=== PATIENT | male | born 1960 | race Caucasian/White ===

== ENCOUNTER 2018-04-10 09:16 | Observation (INO) | payer OTHER ==
[~2018-04-10] VITALS: Ht 182.9 cm; Wt 113.4 kg
[2018-04-10] VITALS (18 sets, daily range): BP systolic 110–150; BP diastolic 60–86
--- NOTE | ~2018-04-10 | D ---
[address] [address] DISCHARGE SUMMARY Name: SELWYN CASTANEDA TONE Room: [address] Yaneli MManoloRManolo#: [id number] Admission: 04/10/18 Attend Phys: Solitario Post MD, Discharge: Date of : 56 Report #: [id number] THIS REPORT FOR: //name// CC: HEENA physician/PCP Solitario Post DATE OF SERVICE: 04/11/2018 FINAL DISCHARGE DIAGNOSES: 1. Unstable angina. 2. Coronary artery disease. 3. Status post percutaneous coronary intervention of the right coronary artery. 4. Hypertension. 5. Hyperlipidemia. 6. Abdominal aortic aneurysm. 7. Exogenous obesity. PROCEDURES: 04/10/2018 -- left heart catheterization, left ventriculography, selective coronary arteriography and percutaneous coronary intervention to the mid right coronary artery. The patient is a 57-year-old male with known coronary artery disease, status post prior stenting. Recently, he developed recrudescence of pain in the chest radiating through the back. It is typical of his prior angina following a pattern of increasing frequency and severity. There is underlying hypertension, hyperlipidemia and he has peripheral vascular disease with a modest size abdominal aortic aneurysm. The patient was seen by our nurse practitioner, Tamar Bermeo who recommended cardiac catheterization. This was undertaken on 04/10/2018 and that study revealed focal 90% mid right coronary in-stent restenosis with no additional stenosis of significance in the dominant right coronary artery. There was 30% LAD narrowings and a widely patent mid circumflex stent with 40% distal circumflex narrowing. Left ventricular function was normal. I placed one drug-eluting stent in the mid right coronary artery, post-dilating it to 3 mm with 10% residual narrowing and LUIS 3 flow to the distal vessel. The patient did well post-procedurally with good hemostasis at the right femoral site of catheterization. LABORATORY DATA: On 04/11/2018 revealed sodium 137, potassium 4.0, BUN 20, creatinine 1.0. Hemoglobin 16.3, white blood cell count 12,000 with 148,000 platelets. Troponin less than 0.06. Cholesterol 173, HDL 46, LDL 103, triglycerides 120 mg percent. The patient was discharged [place] [address] DISCHARGE SUMMARY Name: SELWYN CASTANEDA [address]: [address]#: [id number] Admission: 04/10/18 Attend Phys: Solitario Post MD, Discharge: Date of : 56 Report #: [id number] medications: Accuneb or inhaled albuterol every 6 hours as needed, aspirin 81 mg daily, Wellbutrin 150 mg b.i.d., carvedilol 3.125 mg b.i.d., vitamin D3 or cholecalciferol 400 units daily, clarithromycin 500 mg b.i.d., Zetia 10 mg daily, lisinopril 5 mg daily, magnesium oxide 400 mg daily, prasugrel or Effient 10 mg daily with 60 mg periprocedural dose having been given, ____ fish oil 1000 mg daily, sertraline 50 mg in the evening, cyclobenzaprine or Flexeril 1 tablet t.i.d. p.r.n., diphenhydramine 25 mg q. 6 hours as needed, and p.r.n. sublingual nitroglycerin. The patient is scheduled to see our nurse practitioner, Tamar Bermeo in followup on 04/12/2018 at 1030 hours. By: 0945 1006Solitario Post MD, [facility] /nt
--- NOTE | ~2018-04-10 | H ---
[address] [address] HISTORY AND PHYSICAL Name: SELWYN CASTANEDA Room: [address] Yaneli Henry#: [id number] Admission: 04/10/18 Attend Phys: Solitario Post MD, Discharge: 04/11/18 Date of : 56 Report #: [id number] THIS REPORT FOR: //name// Please refer to the History and Physical performed in the physician's office. By: 0658Medical Records Staff ALISON /KAIN
[~2018-04-10 09:16] MED LIST: ALBUTEROL; ALBUTEROL2.5 MG/31 INH; ALLEGRA180 MG PO; APAP650 PO; ASPIRIN EC81 M1 PO; ASPIRIN325 PO; ASPIRIN81 M2 PO; AUGMENTIN 875875 M1 PO; AUGMENTIN 875875 MG PO; BENADRYL25 MG PO; CLARITHROMYCIN500 MG PO; COLACE100 MG PO; COREG3.125 MG PO; DUONEB 2.5-0.5 M3 ML INH; EFFEXOR37.5 MG PO; EFFIENT10 MG PO; FENTANYL 0.50 MCG/ML IV PUSH; FISHOIL PO; FLEXERIL PO; GABAPENTIN100 MG PO; LISINOPRIL5 MG PO; MAGNES PO; MAGOX 400400 MG PO; MUCINEX600 MG PO; MULTIVITAMINS PO; NAPROSYN500 MG PO; NITROSTAT0.4 MG SL; PERCOCET 5-3251 EACH PO; PHILLIPS500 MG PO; PLAVIX 75 MG TA75 MG PO; PREDNISONE 10 M10 M1; RED YEAST RICE600 MG PO; SALMON OIL 1,01 EACH PO; SINGULAIR 10 MG10 M1 PO; SINGULAIR 10 MG10 MG PO; TRAMADOL 50 MG50 MG PO; VITAMIN D400 UNIT PO; VITAMINC500 PO; WELLBUTRIN PO; WELLBUTRIN SR150 MG PO; ZETIA10 MG PO; ZOCOR40 MG PO
[2018-04-10 09:50] LABS: HEMATOCRIT 52.2 % (42.0-52.0); HEMOGLOBIN 18.1 gm/dL (14.0-18.0); MCH 30.7 pg (26.0-34.0); MCHC 34.7 g/dL (28.0-37.0); MCV 88.5 fL (80.0-100.0); MPV 8.8 fl. (7.2-11.1); RBC 5.9 mil/uL (4.50-6.00); RDW-CV 13.7 % (10.5-14.5); WBC 8.2 thou/uL (4.0-11.0)
[2018-04-10 10:01] LABS: APTT 26.6 Seconds (25.0-31.3); PROTIME 10.3 Seconds (9.20-11.50)
[2018-04-10 10:09] LABS: ANION GAP 9 mmol/L (7-16); BUN 25 mg/dL (7-18); CALCIUM 9.9 mg/dL (8.5-10.1); CHLORIDE 102 mmol/L (98-107); CO2 25 mmol/L (21-32); CREATININE 1.3 mg/dL (0.6-1.3); GLUCOSE 107 mg/dL (70-99); POTASSIUM 4.1 mmol/L (3.5-5.1); SODIUM 136 mmol/L (136-145)
[2018-04-10 10:14] LABS: ALBUMIN 4.4 g/dL (3.4-5.0); ALKALINE PHOSPHATASE 67 U/L (46-116); CHOLESTEROL 173 mg/dL (<200); HDL CHOLESTEROL 46 mg/dL (>40); LDL CHOLESTEROL 103 mg/dL (<100); SGOT 17 U/L (15-37); SGPT 40 U/L (30-65); TC:HDL 3.8 Ratio (Not establshd); TOTAL BILIRUBIN 0.5 mg/dL (<0.1-1.0); TOTAL PROTEIN 8.1 g/dL (6.4-8.2); TRIGLYCERIDE 120 mg/dL (<150); VLDL 24 mg/dL (<40)
[2018-04-10 10:17] LABS: SERUM ASSESSMENT Clear
--- NOTE | 2018-04-10 10:26 | EKG ---
[place] [address] ELECTROCARDIOGRAM REPORT Name: SELWYN TONE Room: [facility]#: [id number] Admission: 04/10/18 Attend Phys: Solitario Post MD, Discharge: Date of : 56 Report #: [id number] THIS REPORT FOR: //name// [facility] Test Date: 2018-04-10 Test Time: 09:47:31 Pat Name: SELWYN CASTANEDA Department: Room: Gender: M Powderman: : 1960 Requested By: Solitario Post Order Number: [id number] Christine MD: Solitario Post Measurements Intervals [place] Rate: 61 P: 40 MS: 179 QRS: 5 QRSD: 102 T: 11 QT: 405 QTc: 408 Interpretive Statements Sinus rhythm Low voltage, precordial leads Baseline wander in lead(s) V4,V5,V6 Compared to ECG 12/11/2015 15:42:48 Myocardial infarct finding no longer present Electronically Signed On 04-10-2018 10:26:33 CHIEF TECHNOLOGIST by Solitario Post [email or web address] <ELECTRONICALLY SIGNED> By: Solitario Post MD, FAC 04/10/18 1026 0947 0947 Solitario Post MD, [facility] /EPI
--- NOTE | 2018-04-10 16:50 | CARD ---
[address] [address] CARDIAC CATH REPORT Name: SELWYN CASTANEDA Room: [address] Yaneli Henry#: [id number] Admission: 04/10/18 Attend Phys: Solitario Post MD, Discharge: Date of : 56 Report #: [id number] THIS REPORT FOR: //name// APPROVED REPORT Study performed: 04/10/2018 09:35:04 Patient Details Patient Status: Out-Patient Room #: The patient is a 57 year-old male Event Personnel Jody Leary RN Pumper Hand, Solitario Post Zigzag Appliquer, Michell Murillo SHOVELER Monitor, Alireza Rangel Haley, Jessica RTR Monitor Procedures Performed Left Heart Cath w/or w/o Coronaries C JEN Place w/wo Plasty Single RCA Hemostasis w/ Angioseal Indication Unstable angina Risk Factors Hypercholesterolemia, Hypertension Admission/Lab Medications/Medications given during procedure Aspirin, Platelet Aff. Inhib., Angiomax IV 17 mg per kg, Angiomax IV 39.5 mg per kg, Aspirin PO 162 mg, Effient PO 60 mg Procedure Narrative The patient was brought electively to the Cardiac Catheterization Laboratory and was prepped and draped in a sterile manner. The right femoral was infiltrated with 2% Lidocaine subcutaneous anesthesia. A [place] 6 FR sheath was inserted into the right femoral artery. Coronary angiography was performed using coronary diagnostic catheters. The right coronary system was accessed and visualized with a Diagnostic 6Fr JR4 catheter. The left coronary system was accessed and visualized with a Diagnostic 6Fr JL4 catheter. The left ventricle was accessed and visualized with a Diagnostic 6Fr straight pigtail catheter. Left ventricular/Aortic Valve gradient assessed via catheter pullback. Left ventriculogram was performed in JADE projection. Closure device was deployed with a 6 Fr Angioseal. Hemostasis was obtained with manual pressure following sheath removal without any complications. The [place] [address] CARDIAC CATH REPORT Name: SELWYN CASTANEDA Room: [address]#: [id number] Admission: 04/10/18 Attend Phys: Solitario Post MD, Discharge: Date of : 56 Report #: [id number] and there were no complications associated with the procedure. There was no hematoma. Intraoperative Conscious Sedation Sedation start time: 1026 Case end Time: 1122 Fentanyl 100 mcg Versed 5 mg Fluoro Time: 10.3 minutes Dose: DAP 193316 cGycm2 2011.71 mGy Contrast Type and Amount: Visipaque 220 ml Diagnostic Cath Left Main 0% narrowing LAD 30% mid vessel narrowing Circumflex Nondominant vessel with widely patent mid circumflex stent and 40% distal narrowing Right Coronary Dominant vessel with multiple stents placed throughout with 90% mid right coronary in-stent restenosis which was a focal lesion Left Ventriculography The left ventricle is normal in size with normal contractility. The left ventricular ejection fraction is estimated to be 60-65%. Left ventricular wall motion abnormalities are not present. There is no mitral insufficiency. Hemodynamics The aortic pressure is 109/64 mmHg with a mean of 84 mmHg. The left ventricular pressure is 105/7 mmHg with a mean of mmHg. The left ventricular end diastolic pressure is 15 mmHg. There was no gradient across the aortic valve upon pullback. Pullback from the left ventricle to the aorta revealed no gradient across the aortic valve. PCI Technique Lesion Anticoagulation was achieved with Angiomax. Percutaneous coronary intervention was performed on the mid right coronary artery. The lesion stenosis prior to intervention was 90% with LUIS 3 flow. A 6F 3DRC Guide Catheter was used to engage the ostium. A BMW 190cm Interventional Guidewire was used to cross the lesion. BALLOON DILATION A Balloon catheter Trek RX 2.5 X 8 was inserted and inflated up to 14.00atm for 15seconds. Additional Inflation: 16.00atm for 9seconds. [place] [address] CARDIAC CATH REPORT Name: SELWYN CASTANEDA TONE Room: [address] Yaneli M.R.#: [id number] Admission: 04/10/18 Attend Phys: Solitario Post MD, Discharge: Date of : 56 Report #: [id number] STENT DEPLOYMENT A drug-eluting stent [place] RX Stent 2.75X8mm was inserted and inflated up to 14.00atm for 10seconds. Additional Inflation: 16.00atm for 10seconds. Additional Inflation: 17.00atm for 7seconds. POST STENT DEPLOYMENT BALLOON DILATION A Balloon catheter NC Euphora 2.75x8 was inserted and inflated up to 22.00atm for 14seconds. Additional Inflation: 24.00atm for 9seconds. Additional Inflation: 24.00atm for 9seconds. Final angiography reveals 10 % stenosis with LUIS 3 flow. Conclusion #1 significant coronary artery disease characterized by the following: A 30% mid LAD narrowing B nondominant circumflex with widely patent mid vessel stent and 40% distal narrowing C dominant right coronary with multiple stents placed throughout and 90% mid right coronary focal in-stent restenosis #2 normal left-sided hemodynamic study #3 normal left ventricular systolic function, estimate ejection fraction being 60-65% #4 successful percutaneous coronary intervention with deployment of drug-eluting stent at the site of 90% focal mid right coronary in-stent restenosis with 10% residual narrowing and LUIS-3 flow to the distal vessel Recommendations Cardiac Risk Reduction Program Aggressive Medical Therapy Medications Administered Aspirin (any) [place] [address] CARDIAC CATH REPORT Name: SELWYN CASTANEDA TONE Room: [address] Yaneli Henry#: [id number] Admission: 04/10/18 Attend Phys: Solitario Post MD, Discharge: Date of : 56 Report #: [id number] Diagnostic Cath Approved by: Solitario Post MD Date/Time: 04/10/2018 16:49:15 <ELECTRONICALLY SIGNED> By: Solitario Post MD, [facility] 04/10/18 1649 48 Solitario Post MD, [facility] /INF
--- NOTE | 2018-04-10 16:54 | EKG ---
[place] [address] ELECTROCARDIOGRAM REPORT Name: SELWYN CASTANEDA TONE Room: [address] M.R.#: [id number] Admission: 04/10/18 Attend Phys: Solitario Post MD, Discharge: Date of : 56 Report #: [id number] THIS REPORT FOR: //name// [facility] Test Date: 2018-04-10 Test Time: 12:03:06 Pat Name: SELWYN CASTANEDA Department: Room: [facility] Gender: M Handle Finisher: : 1960 Requested By: Solitario Post Order Number: [id number] Christine MD: Solitario Post Measurements Intervals [place] Rate: 66 P: 34 CT: 182 QRS: 5 QRSD: 102 T: 12 QT: 405 QTc: 425 Interpretive Statements Sinus rhythm Low voltage, precordial leads Compared to ECG 04/10/2018 09:47:31 No significant changes Electronically Signed On 04-10-2018 16:54:12 CUSTOMER MARKETING ASSISTANT by Solitario Post [email or web address] <ELECTRONICALLY SIGNED> By: Solitario Post MD, [facility] 04/10/18 1654 1203 120 Solitario Post MD, FACC /EPI
--- NOTE | 2018-04-10 18:15 | NUR ---
VSS, ASSUMED CARE OF PT FROM JIG MAKER, PT IS TRACING SR ON THE MONITOR, ON 2L NC, IS A&O4, AND STATES SOME PAIN IN BACK FROM LAYING ON HIS BACK, PT RIGHT GRION CATH SITE IS C/D/I, PT HAS COMPLETED VITAL CHECKS, AND IS NOW UP AD NAOMY, PT HAS D/C KAUR, HOURLY COMPLETED, WILL FOLLOW WITH SHIFT CHANGE
[2018-04-10] MEDS ORDERED: SERTRALINE HCL50 MG PO (21:43)
[2018-04-11] VITALS: BP 111/71
[2018-04-11 04:00] VITALS: BP 113/68
--- NOTE | 2018-04-11 04:46 | NUR ---
PT CARE ASSUMED AT 1930. SAT MAINTAINED IN 1L NC AND CPAP AT NIGHT. ALERT AND ORIENTED X4. CALL LIGHT WITHIN REACH AND BED IN LOW POSITION. DENIES SOB AND PAIN. CATH SITE C/D/I. HOURLY ROUNDING DONE FOR PT SAFETY.
[2018-04-11 05:08] LABS: HEMATOCRIT 47.2 % (42.0-52.0); HEMOGLOBIN 16.3 gm/dL (14.0-18.0); MCH 30.5 pg (26.0-34.0); MCHC 34.6 g/dL (28.0-37.0); MCV 88.1 fL (80.0-100.0); RBC 5.36 mil/uL (4.50-6.00); RDW-CV 13.7 % (10.5-14.5)
[2018-04-11 05:28] LABS: ALBUMIN 3.5 g/dL (3.4-5.0); ALKALINE PHOSPHATASE 55 U/L (46-116); ANION GAP 9 mmol/L (7-16); BUN 20 mg/dL (7-18); CHLORIDE 105 mmol/L (98-107); CO2 23 mmol/L (21-32); GLUCOSE 147 mg/dL (70-99); SGOT 14 U/L (15-37); SGPT 28 U/L (30-65); SODIUM 137 mmol/L (136-145); TOTAL BILIRUBIN 0.6 mg/dL (<0.1-1.0); TOTAL PROTEIN 6.9 g/dL (6.4-8.2); TROPONIN-I LEVEL <0.06 ng/mL (<0.06)
[2018-04-11 08:00] VITALS: BP 123/74
[2018-04-11 08:35] VITALS: BP 110/60
[2018-04-11 13:37] VITALS: BP 110/60
--- NOTE | 2018-04-11 13:40 | NUR ---
I ASSUMED CARE OF THE PATIENT AT 0700. HE IS ALERT AND ORIENTED X4 AND IS UP AD NAOMY. BED IS IN THE LOW LOCKED POSITION AND CALL LIGHT IS IN REACH. HOURLY ROUNDING WAS COMPLETED AND PATIENT NEEDS WERE MET. PAIN IS MANAGED WITH PRN MEDS. DISCHARGE UNDERSTOOD. IV D/C'D INTACT AND HOMEOSTASIS WAS ACHEIVED.
--- NOTE | 2018-04-12 12:29 | EKG ---
[place] [address] ELECTROCARDIOGRAM REPORT Name: SELWYN CASTANEDA Room: [address] M.R.#: [id number] Admission: 04/10/18 Attend Phys: Solitario Post MD, Discharge: 04/11/18 Date of : 56 Report #: [id number] THIS REPORT FOR: //name// [facility] Test Date: 2018-04-11 Test Time: 08:04:00 Pat Name: SELWYN CASTANEDA Department: Room: [facility] Gender: M Drain Tile Machine Operator: : 1960 Requested By: Solitraio Post Order Number: [id number] Reading MD: Buster Jaquez Measurements Intervals [place] Rate: 66 P: 25 WV: 180 QRS: 0 QRSD: 103 T: 6 QT: 435 QTc: 456 Interpretive Statements Sinus rhythm Low voltage, precordial leads Compared to ECG 04/10/2018 12:03:06 No significant changes Electronically Signed On 04-12-2018 12:29:24 TOPOGRAPHY TECHNICIAN by Buster Jaquez [email or web address] <ELECTRONICALLY SIGNED> By: Buster Jaquez MD, [facility] 04/12/18 1229 0804 08 Buster Jaquez MD, [facility] /EPI
== END 2018-04-11 14:19 | disposition home or self-care (01) ==
LOC: M.CL 09:16 → M.2W 11:34 → M.TBA-CV 11:34 → M.2W 12:46
PROVIDERS: ADMIT Internal Medicine
DX: I25.110 Atherosclerotic heart disease of native coronary artery with unstable angina pectoris (principal); I10 Essential (primary) hypertension; E78.5 Hyperlipidemia, unspecified; I71.4 Abdominal aortic aneurysm, without rupture; E66.09 Other obesity due to excess calories; J44.9 Chronic obstructive pulmonary disease, unspecified; Z72.0 Tobacco use; Z79.899 Other long term (current) drug therapy

== ENCOUNTER 2018-06-24 13:47 | Inpatient (IN) | payer OTHER ==
[~2018-06-24] VITALS: Ht 182.9 cm; Wt 108.9 kg
[~2018-06-24 13:47] MED LIST changes: +SERTRALINE HCL50 MG PO
[2018-06-24 13:53] VITALS: BP 123/77
[2018-06-24] MEDS ORDERED: EFFIENT10 MG PO (13:55)
[2018-06-24 14:37] LABS: ABSOLUTE BASOPHILS 0.1 thou/uL (0.0-0.2); ABSOLUTE EOSINOPHILS 0.2 thou/uL (0.0-0.7); ABSOLUTE LYMPHOCYTES 2.6 thou/uL (0.8-5.3); ABSOLUTE MONOCYTES 1.2 thou/uL (0.0-1.2); ABSOLUTE NEUTROPHILS 7.9 thou/uL (1.6-8.1); BASOPHILS 0.9 %; EOSINOPHILS 1.8 %; HEMATOCRIT 51.9 % (42.0-52.0); HEMOGLOBIN 17.9 gm/dL (14.0-18.0); LYMPHOCYTES 21.7 %; MCH 30.1 pg (26.0-34.0); MCHC 34.6 g/dL (28.0-37.0); MCV 87.2 fL (80.0-100.0); MONOCYTES 10.2 %; MPV 8.4 fl. (7.2-11.1); NUCLEATED RBCS 0 /100WBC; PLATELET COUNT* 177 thou/uL (150-400); POLYS 65.4 %; RBC 5.96 mil/uL (4.50-6.00); RDW-CV 14.1 % (10.5-14.5)
[2018-06-24 14:45] LABS: APTT 26.4 Seconds (25.0-31.3); PROTIME 10.6 Seconds (9.20-11.50)
[2018-06-24 15:13] LABS: CALCIUM 10.4 mg/dL (8.5-10.1); CREATININE 1.3 mg/dL (0.6-1.3); POTASSIUM 4.1 mmol/L (3.5-5.1)
[2018-06-24 15:18] LABS: ALBUMIN 4.4 g/dL (3.4-5.0); CK-MB MASS 1.8 ng/mL (<0.5-3.6); MAGNESIUM 2.4 mg/dL (1.8-2.4); TOTAL BILIRUBIN 0.5 mg/dL (<0.1-1.0); TOTAL PROTEIN 8.1 g/dL (6.4-8.2)
[2018-06-24 16:10] VITALS: BP 140/82
--- NOTE | 2018-06-24 16:20 | NUR ---
ER ADMIT TO RM VIA CART REPORT GIVEN VIA PHONE DENIES PAIN ORIENTED TO RM AND CALL LIGHT ADMIT ASSMNT AND HX TO FOLLOW
[2018-06-24 17:02] LABS: CHOLESTEROL 140 mg/dL (<200); HDL CHOLESTEROL 42 mg/dL (>40); LDL CHOLESTEROL 73 mg/dL (<100); SERUM ASSESSMENT Clear; TC:HDL 3.3 Ratio (Not establshd); TRIGLYCERIDE 126 mg/dL (<150); VLDL 25 mg/dL (<40)
[2018-06-24] MEDS ORDERED: ZYRTEC10 MG PO (19:07)
[2018-06-24 20:00] VITALS: BP 110/75
[2018-06-25] VITALS: BP 123/70
[2018-06-25 02:07] LABS: GLYCOHEMOGLOBIN (HGB A1C) 5.8 % (4.8-5.6)
[2018-06-25 04:00] VITALS: BP 113/78
--- NOTE | 2018-06-25 05:21 | NUR ---
ASSUMED PT CARE AT 1930. ASSESSMENT COMPLETED CHARTED. ABLE TO MAKE NEEDS KNOWN. PT NPO SINCE MIDNIGHT FOR CATH PROCEDURE TODAY. C/O MILD BACK PAIN THAT IS DIFFERENT FROM HIS NORMAL BACK PAIN. STATES THAT HE IS SICK OF HAVING TO GET STINTS PLACED SO FREQUENTLY. CPAP ON AT THIS TIME, RESTING IN BED COMFORTABLY. WILL CONTINUE TO MONITOR.
--- NOTE | 2018-06-25 07:25 | NUR ---
CHANGE OF SHIFT BEDSIDE REPORT GIVEN PATIENT SEEN AT BEDSIDE, IN BED AND WATCHING TV ASSUMED PATIENT CARE
[2018-06-25 08:00] VITALS: BP 121/80
[2018-06-25 08:52] LABS: CALCIUM 9.4 mg/dL (8.5-10.1); CREATININE 1.2 mg/dL (0.6-1.3); MAGNESIUM 2.4 mg/dL (1.8-2.4); POTASSIUM 4.2 mmol/L (3.5-5.1)
[2018-06-25 12:45] VITALS: BP 112/76
--- NOTE | 2018-06-25 15:14 | NUR ---
MET WITH PT TO DISCUSS HOME SITUATION/DC PLANNING. PT LIVES WITH , USES CPAP AND IS INDEPENDENT. HE FOLLOWS WITH DR AT [facility] IN [place]. TO HAVE CARDIAC CATH TOMORROW. WILL FOLLOW
[2018-06-25 16:08] VITALS: BP 115/80
--- NOTE | 2018-06-25 17:02 | EKG ---
[place] [address] ELECTROCARDIOGRAM REPORT Name: SELWYN CASTANEDA TONE Room: [address] ADM IN M.R.#: [id number] Admission: 06/24/18 Attend Phys: Alireza Cordova MD Discharge: Date of : 56 Report #: [id number] THIS REPORT FOR: //name// [facility] Test Date: 2018-06-24 Test Time: 13:53:02 Pat Name: SELWYN CASTANEDA Department: Room: [facility] Gender: M Community Engagement Representative: : 1960 Requested By: Gage Woods Order Number: [id number] MD: Buster Jaquez Measurements Intervals [place] Rate: 60 P: 20 IN: 172 QRS: -9 QRSD: 102 T: 21 QT: 409 QTc: 409 Interpretive Statements Sinus rhythm Low voltage, precordial leads Compared to ECG 04/11/2018 08:04:00 No significant changes Electronically Signed On 06-25-2018 17:01:47 CDT by Buster Jaquez [email or web address] <ELECTRONICALLY SIGNED> By: Buster Jaquez MD, [facility] 06/25/18 1701 1353 1353 Buster Jaquez MD, FAC /EPI
--- NOTE | 2018-06-25 17:07 | EKG ---
[place] [address] ELECTROCARDIOGRAM REPORT Name: SELWYN CASTANEDA TONE Room: [address] ADM IN M.R.#: [id number] Admission: 06/24/18 Attend Phys: Alireza Cordova MD Discharge: Date of : 56 Report #: [id number] THIS REPORT FOR: //name// [facility] Test Date: 2018-06-25 Test Time: 14:21:00 Pat Name: SELWYN CASTANEDA Department: Room: [address] Gender: M Meal Room Hand: : 1960 Requested By: Alireza Cordova Order Number: [id number] Reading MD: Buster Jaquez Measurements Intervals [place] Rate: 74 P: 22 DE: 172 QRS: -23 QRSD: 99 T: -1 QT: 399 QTc: 443 Interpretive Statements Sinus rhythm Borderline left axis deviation Low voltage, precordial leads Consider anterior infarct Compared to ECG 04/11/2018 08:04:00 Myocardial infarct finding now present Electronically Signed On 06-25-2018 17:07:36 CDT by Buster Jaquez [email or web address] <ELECTRONICALLY SIGNED> By: Buster Jaquez MD, [facility]ACC 06/25/18 1707 1421 1421 Buster Jaquez MD, [facility] /EPI
[2018-06-25 20:00] VITALS: BP 108/73
[2018-06-26] VITALS (17 sets, daily range): BP systolic 97–125; BP diastolic 57–84
--- NOTE | 2018-06-26 07:54 | NUR ---
ASSUMED PT CARE AT 1930. ASSESSMENT COMPLETED CHARTED. ABLE TO MAKE NEEDS KNOWN. UP WITH STANDBY ASSIST WITH CANE. C/O HEADACHE LAST NIGHT FROM NITRO YESTERDAY AFTERNOON. WILL CONTINUE TO MONITOR.
[2018-06-26] MEDS ORDERED: PROTONIX40 M1 PO (11:24)
--- NOTE | 2018-06-26 13:06 | 2DMMODE ---
[place] [address] 2 D/M-MODE ECHOCARDIOGRAM Name: BELT BACK OPERATORSELWYN LEE Room: [address] IN [facility]#: [id number] Admission: 06/24/18 Attend Phys: Alireza Cordova, Discharge: Date of : 56 Date of Service: 06/26/18 1306 Report #: [id number] THIS REPORT FOR: //name// APPROVED REPORT Study performed: 06/26/2018 11:04:09 EXAM: Comprehensive 2D, Doppler, and color-flow Echocardiogram Patient Location: In-Patient Room #: 229 Status: routine BSA: 2.30 HR: 60 bpm BP: 105/75 mmHg Rhythm: NSR Other Information Study Quality: Good Indications Dyspnea Chest Pain 2D Dimensions IVSd: 10.58 (7-11mm) LVOT Diam: 22.16 (18-24mm) LVDd: 45.77 mm PWd: 9.04 (7-11mm) Ascending Ao: 32.09 (22-36mm) LVDs: 30.84 (25-40mm) Aortic Root: 36.37 mm Volumes Left Atrial Volume (Systole) LA ESV Index: 18.40 mL/m2 Aortic Valve AoV Peak Hiren.: 1.33 m/s AO Peak Gr.: 7.10 mmHg LVOT Max P.78 mmHg AO Mean Gr.: 4.15 mmHg LVOT Mean P.23 mmHg LVOT Max V: 1.09 m/s AO V2 VTI: 23.97 cm LVOT Mean V: 0.68 m/s LUIS (VTI): 3.32 cm2 LVOT V1 VTI: 20.62 cm Mitral Valve E/A Ratio: 0.93 MV Decel. Time: 229.99 [place] [address] 2 D/M-MODE ECHOCARDIOGRAM Name: SELWYN CASTANEDA Room: [address] IN .R.#: [id number] Admission: 06/24/18 Attend Phys: Alireza Cordova, Discharge: Date of : 56 Date of Service: 06/26/18 1306 Report #: [id number] MV E Max Hiren.: 0.76 m/s MV PHT: 66.70 ms MVA (PHT): 3.30 cm2 TDI E/Lateral E': 8.44 E/Medial E': 10.86 Medial E' Hiren.: 0.07 m/s Lateral E' Hiren.: 0.09 m/s Pulmonary Valve PV Peak Hiren.: 0.96 m/s PV Peak Gr.: 3.68 mmHg Tricuspid Valve RAP Estimate: 5.00 mmHg TR Peak Gr.: 18.30 mmHg RVSP: 23.00 mmHg PA Pressure: 23.00 mmHg Left Ventricle The left ventricle is normal size. There is moderate hypokinesis of the basal inferior wall. There is normal left ventricular wall thickness. Left ventricular systolic function is preserved. LVEF is 55-60%. Transmitral Doppler flow pattern suggests impaired LV relaxation. Right Ventricle The right ventricle is normal size. The right ventricular systolic function is normal. Atria The left atrium size is normal. The right atrium size is normal. Aortic Valve The aortic valve is normal in structure. No aortic regurgitation is present. There is no aortic valvular stenosis. Mitral Valve The mitral valve is normal in structure. There is no mitral valve regurgitation noted. No evidence of mitral valve stenosis. Tricuspid Valve The tricuspid valve is normal in structure. Trace tricuspid regurgitation. No pulmonary hypertension. Pulmonic Valve The pulmonary valve is normal in structure. [place] [address] 2 D/M-MODE ECHOCARDIOGRAM Name: SELWYN CASTANEDA TONE Room: [address]#: [id number] Admission: 06/24/18 Attend Phys: Alireza Cordova, Discharge: Date of : 56 Date of Service: 06/26/18 1306 Report #: [id number] valvular regurgitation. Great Vessels The aortic root is normal in size. IVC is normal in size and collapses >50% with inspiration. Pericardium There is no pericardial effusion. <Conclusion> The left ventricle is normal size. There is normal left ventricular wall thickness. Left ventricular systolic function is preserved. LVEF is 55-60%. Transmitral Doppler flow pattern suggests impaired LV relaxation. Trace tricuspid regurgitation. No pulmonary hypertension. IVC is normal in size and collapses >50% with inspiration. <ELECTRONICALLY SIGNED> By: Buster Jaquez MD, FACC 06/26/18 1306 1306 1306 Buster Jaquez MD, FACC /INF
--- NOTE | 2018-06-26 16:57 | NUR ---
VSS, ASSUMED CARE IN THE AM, ASSESSMENT PERFORMED AND CHARTED, FALL PRECAUTIONS IN PLACE AND CALL LIGHT IN REACH, PT IS A7O4 AND UP WITH STAND BY AND CANE HE IS ON RA AND CPAP AT HS, PT HAD A CATH WITH NO INTERVENTIONS OR COMPLICATIONS, PT IS TRACING SR.SB ON THE MONITOR, PT GOAL IS TO D/C TO HOME TODAY, WILL FOLLOW WITH PLAN OF CARE AND HOURLY ROUNDS.
--- NOTE | 2018-06-26 18:26 | NUR ---
VSS, RECIEVED D/C ORDERS, FILLED OUT D/C PAPERS, TOOK OUT IV AND TELE MONITOR, PT WAS GIVEN SCRIPT AND D/C PAPERS, PT DENIES ANY QUESTIONS AT TIME OF D/C HOURLY ROUNDS AND CHART CHECK COMPLETED, PT TAKEN OUT BY WHEEL CHAIR TO CAR BY STAFF,
== END 2018-06-26 18:27 | disposition home or self-care (01) | DRG 303 ==
LOC: M.ERS 13:47 → M.2W 15:16 → M.TBA-ER 15:16 → M.2W 16:47
PROVIDERS: Emergency Medicine Emergency Medical Services; Registered Nurse; ADMIT Internal Medicine
DX: I25.110 Atherosclerotic heart disease of native coronary artery with unstable angina pectoris (principal); E78.5 Hyperlipidemia, unspecified; F32.9 Major depressive disorder, single episode, unspecified; E66.9 Obesity, unspecified; E11.65 Type 2 diabetes mellitus with hyperglycemia; I12.9 Hypertensive chronic kidney disease with stage 1 through stage 4 chronic kidney disease, or unspecified chronic kidney disease; I71.4 Abdominal aortic aneurysm, without rupture; N18.2 Chronic kidney disease, stage 2 (mild); E11.22 Type 2 diabetes mellitus with diabetic chronic kidney disease; I25.10 Atherosclerotic heart disease of native coronary artery without angina pectoris; M19.90 Unspecified osteoarthritis, unspecified site; I25.2 Old myocardial infarction; Z95.5 Presence of coronary angioplasty implant and graft; Z90.49 Acquired absence of other specified parts of digestive tract; Z88.8 Allergy status to other drugs, medicaments and biological substances; Z88.6 Allergy status to analgesic agent; Z91.013 Allergy to seafood; Z87.891 Personal history of nicotine dependence; Z79.82 Long term (current) use of aspirin; Z79.899 Other long term (current) drug therapy; Z68.32 Body mass index [BMI] 32.0-32.9, adult

== ENCOUNTER 2019-01-16 20:47 | Inpatient (IN) | payer OTHER ==
[~2019-01-16] VITALS: Ht 167.6 cm; Wt 111.6 kg
[~2019-01-16 20:47] MED LIST changes: +PROTONIX40 M1 PO; +ZYRTEC10 MG PO
[2019-01-16 20:55] VITALS: BP 140/77
[2019-01-16] MEDS ORDERED: COMBIVENT INH (20:59)
[2019-01-16 21:18] LABS: ABSOLUTE EOSINOPHILS 0.3 thou/uL (0.0-0.7); ABSOLUTE LYMPHOCYTES 2.3 thou/uL (0.8-5.3); ABSOLUTE MONOCYTES 0.6 thou/uL (0.0-1.2); ABSOLUTE NEUTROPHILS 3.9 thou/uL (1.6-8.1); BASOPHILS 0.3 %; EOSINOPHILS 4.8 %; HEMATOCRIT 48.9 % (42.0-52.0); HEMOGLOBIN 17.4 gm/dL (14.0-18.0); LYMPHOCYTES 31.9 %; MCH 30.3 pg (26.0-34.0); MCHC 35.5 g/dL (28.0-37.0); MCV 85.6 fL (80.0-100.0); MONOCYTES 7.8 %; NUCLEATED RBCS 0 /100WBC; PLATELET COUNT* 155 thou/uL (150-400); POLYS 55.2 %; RBC 5.72 mil/uL (4.50-6.00); RDW-CV 13.8 % (10.5-14.5); WBC 7.1 thou/uL (4.0-11.0)
[2019-01-16 21:30] LABS: APTT 25.7 Seconds (25.0-31.3); PROTIME 10.2 Seconds (9.20-11.50)
[2019-01-16 22:07] LABS: CALCIUM 10.1 mg/dL (8.5-10.1); CREATININE 1.4 mg/dL (0.6-1.3); POTASSIUM 4.1 mmol/L (3.5-5.1)
[2019-01-16 22:18] LABS: ALBUMIN 4.1 g/dL (3.4-5.0); TOTAL BILIRUBIN 0.4 mg/dL (<0.1-1.0); TOTAL PROTEIN 7.4 g/dL (6.4-8.2)
[2019-01-16 22:50] LABS: BE -2.5 mmol/L (-2 to +3); PO2 60.2 mmHg (75.0-100.0); pH 7.426 (7.340-7.450)
[2019-01-17] VITALS (8 sets, daily range): BP systolic 113–140; BP diastolic 60–83
[2019-01-17] MEDS ORDERED: VITAMIN C500 M2 PO (02:25)
[2019-01-17] MEDS ORDERED: TIZANIDINE HCL4 M1 PO (02:26)
[2019-01-17] MEDS ORDERED: MELATONIN5 M4 PO (02:28)
[2019-01-18] VITALS (11 sets, daily range): BP systolic 85–111; BP diastolic 56–65
[2019-01-18 04:32] LABS: HEMATOCRIT 49.7 % (42.0-52.0); HEMOGLOBIN 16.7 gm/dL (14.0-18.0); MCH 29.3 pg (26.0-34.0); MCHC 33.6 g/dL (28.0-37.0); MCV 87.2 fL (80.0-100.0); MPV 8.1 fl. (7.2-11.1); RBC 5.7 mil/uL (4.50-6.00); RDW-CV 13.9 % (10.5-14.5); WBC 14.5 thou/uL (4.0-11.0)
[2019-01-18 04:43] LABS: CALCIUM 9.9 mg/dL (8.5-10.1); CREATININE 1.3 mg/dL (0.6-1.3)
--- NOTE | 2019-01-18 16:26 | EKG ---
[place] [address] ELECTROCARDIOGRAM REPORT Name: SELWYN CASTANEDA Room: [address] ADM IN M.R.#: [id number] Admission: 01/16/19 Attend Phys: Li Rodas Discharge: Date of : 56 Report #: [id number] THIS REPORT FOR: //name// [facility] ED Test Date: 2019-01-16 Test Time: 21:04:44 Pat Name: SELWYN CASTANEDA Department: Room: [facility] Gender: M Pulper: CHIVO : 1960 Requested By: Cleo Qureshi Order Number: [id number] MD: Javier Mello Measurements Intervals [place] Rate: 73 P: 36 MA: 173 QRS: -3 QRSD: 104 T: 8 QT: 384 QTc: 424 Interpretive Statements Sinus rhythm Low voltage, precordial leads Borderline T abnormalities, anterior leads Compared to ECG 06/25/2018 14:21:00 no change Electronically Signed On 01-18-2019 16:26:18 CDT by Javier Mello [email or web address] <ELECTRONICALLY SIGNED> By: Javier Mello MD, FACC 01/18/19 1626 03 03 Javier Mello MD, FAC /EPI
--- NOTE | 2019-01-18 17:39 | CARD ---
[address] [address] CARDIAC CATH REPORT Name: SELWYN CASTANEDA TONE Room: [address] ADM IN M.R.#: [id number] Admission: 01/16/19 Attend Phys: Li Rodas Discharge: Date of : 56 Report #: [id number] THIS REPORT FOR: //name// APPROVED REPORT Study performed: 01/18/2019 15:55:07 Patient Details Patient Status: In-Patient Room #: The patient is a 58 year-old male Event Personnel Buster Jaquez Rn House Supervisor, Clemencia Wall RN Toe Pounder, Tiera Church RTR Scrub, Brittany Barclay RTR Monitor Procedures Performed Art Access - R femoral artery* Left Heart Cath w/LT VGram [id number] [facility] Procedure Narrative The patient was brought electively to the Cardiac Catheterization Laboratory and was prepped and draped in a sterile manner. The right femoral was infiltrated with 2% Lidocaine subcutaneous anesthesia. A 6fr Ultimum Sheath sheath was inserted into the right femoral artery. Coronary angiography was performed using coronary diagnostic catheters. The right coronary system was accessed and visualized with a Diagnostic catheter. The left coronary system was accessed and visualized with a Diagnostic catheter. The left ventricle was accessed and visualized with a Diagnostic catheter. Left ventricular/Aortic Valve gradient assessed via catheter pullback. Closure device was deployed with a 6 Fr Angioseal. The patient tolerated the procedure well and there were no complications associated with the procedure. There was no hematoma. Intraoperative Conscious Sedation Sedation start time: 1635 Case end Time: 165 Fentanyl 50 mcg Versed 2 mg Fluoro Time: 1.7 minutes Dose: DAP 19756 cGycm2 1040 mGy Contrast Type and Amount: Visipaque 115 ml Diagnostic [place] [address] CARDIAC CATH REPORT Name: SELWYN CASTANEDA TONE Room: [address] IN [facility].#: [id number] Admission: 01/16/19 Attend Phys: Li Rodas Discharge: Date of : 56 Report #: [id number] LAD Minimally plaqued in the midportion. The vessel is otherwise normal. Diagonal 1 Minimally plaqued proximally otherwise normal. Diagonal 2 Normal. Circumflex Minimally plaqued in the midportion otherwise normal. OM1 Normal large branched. OM2 Normal large branched. Right Coronary Widely patent stent extending from the ostium to the acute marginal branch. 30% narrowing distally. R PDA Normal. RPLV Normal. Left Ventriculography Ejection Fraction was 60% based off patient's . The left ventricle is mildly dilated in size with normal contractility. Hemodynamics The aortic pressure is 107/60 mmHg with a mean of 83 mmHg. The left ventricular pressure is 92/6 mmHg with a mean of mmHg. The left ventricular end diastolic pressure is 14 mmHg. There was no gradient across the aortic valve upon pullback. Conclusion 1. Widely patent stents in the proximal to mid right coronary artery. 2. Nonocclusive coronary disease in the remaining vessels. 3. Normal left ventricular end-diastolic pressure. 4. Normal left ventricular systolic function. Recommendations 1. Continue medical management and aggressive risk factor modification. <ELECTRONICALLY SIGNED> By: Buster Jaquez MD, FACC 01/18/19 1739 [id number] Jaquez MD, FACC /INF
[2019-01-19] VITALS: BP 137/76
[2019-01-19 04:00] VITALS: BP 86/49
[2019-01-19 04:26] LABS: ABSOLUTE BASOPHILS 0.1 thou/uL (0.0-0.2); ABSOLUTE EOSINOPHILS 0.6 thou/uL (0.0-0.7); ABSOLUTE LYMPHOCYTES 2.9 thou/uL (0.8-5.3); ABSOLUTE NEUTROPHILS 4.7 thou/uL (1.6-8.1); BASOPHILS 1.4 %; EOSINOPHILS 6.3 %; HEMOGLOBIN 16.1 gm/dL (14.0-18.0); MCH 29.9 pg (26.0-34.0); MCHC 34.3 g/dL (28.0-37.0); MCV 87.2 fL (80.0-100.0); MONOCYTES 10.5 %; NUCLEATED RBCS 0 /100WBC; PLATELET COUNT* 154 thou/uL (150-400); POLYS 50.8 %; RBC 5.39 mil/uL (4.50-6.00); RDW-CV 13.7 % (10.5-14.5); WBC 9.2 thou/uL (4.0-11.0)
[2019-01-19 05:05] LABS: CALCIUM 9.2 mg/dL (8.5-10.1); CREATININE 1.3 mg/dL (0.6-1.3); POTASSIUM 4.4 mmol/L (3.5-5.1)
[2019-01-19 08:00] VITALS: BP 106/60
[2019-01-19 12:01] VITALS: BP 103/55
[2019-01-19] MEDS ORDERED: IMDUR 30 MG TAB30 M1 PO (12:51)
[2019-01-19 14:47] VITALS: BP 103/55
[2019-01-19 14:55] VITALS: BP 103/55
--- NOTE | 2019-01-23 11:55 | CON ---
[address] [address] CONSULTATION Name: WARDROBE SPECIALTY WORKERSELWYN TONE Room: [address] IN M.R.#: [id number] Admission: 01/16/19 Attend Phys: Li Rodas Discharge: 01/19/19 Date of : 56 Report #: [id number] THIS REPORT FOR: //name// CC: FAM unknown Hanna Ramirez DATE OF SERVICE: 01/17/2019 CARDIOLOGY CONSULTATION HISTORY OF PRESENT ILLNESS: The patient is a 58-year-old male with complex coronary artery disease, status post multiple prior percutaneous coronary interventions, most recently to the right coronary artery. 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 It ultimately remitted and responded to sublingual nitroglycerin. Today, he is short of breath. He has been on bronchodilators, but the dyspnea has worsened of late. The patient has underlying significant cigarette smoking, though he no longer smokes, diabetes and family history of premature coronary artery disease in his brother. Cardiac related medicines include aspirin, carvedilol, Zetia, inhaled bronchodilators, lisinopril, p.r.n. nitroglycerin, and prasugrel. PAST MEDICAL HISTORY: Remarkable for diabetes, coronary artery disease with prior stenting and polycythemia. He has undergone multiple cardiac catheterizations and multiple surgeries including neck, back, foot and carpal tunnel surgery. FAMILY HISTORY: Remarkable for brother requiring a cardiac ablation. SOCIAL HISTORY: The patient is , is retired and disabled. He rarely drinks and no longer smokes, but did in the past. REVIEW OF SYSTEMS: Remarkable for the following positives. RESPIRATORY: He notes chronic cough and has been dyspneic of late. There is significant underlying obstructive airways disease. CARDIOVASCULAR: He describes two types of chest pain, one suggesting ischemia. ENDOCRINE: Type 2 diabetes. ALLERGIC AND IMMUNOLOGIC: He notes medication allergies to PLAVIX, CODEINE, KEFLEX [place] [address] CONSULTATION Name: SELWYN CASTANEDA TONE Room: [address]#: [id number] Admission: 01/16/19 Attend Phys: Li Rodas Discharge: 01/19/19 Date of : 56 Report #: [id number] EYES: He wears glasses. PHYSICAL EXAMINATION: GENERAL: Reveals an overweight, middle-aged male. VITAL SIGNS: Blood pressure is 155/80, pulse rate is 73, respirations are 18 per minute. NECK: Jugular venous pressure is normal. CHEST: Reveals prolonged expiration without wheezing. CARDIAC: Reveals normal first and second heart sounds without murmurs or gallops. ABDOMEN: Mildly obese. EXTREMITIES: Without edema with intact femoral, pedal and radial pulses. Electrocardiogram reveals sinus rhythm with nondiagnostic inferior Q-waves, low voltage QRS complexes, minor interventricular conduction delay and nonspecific ST-T alterations. LABORATORY DATA: Remarkable for white blood cell count of 7100, hemoglobin 17.4, platelets 155,000. Sodium 139, potassium 4.1, BUN 12, creatinine 1.4. Troponin I is less than 0.06. IMPRESSION: 1. Coronary artery disease, status post prior percutaneous coronary intervention. 2. 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 3. Chronic obstructive pulmonary disease. 4. Hypertension. 5. Polycythemia. 6. Exogenous obesity. RECOMMENDATIONS: Given the characterization of the pain, I would strongly consider recatheterization to define current coronary anatomy and prospects for subsequent therapeutic modification. In the interim, augmented bronchodilator therapy would be indicated. Echocardiogram to review LV systolic function, though it has been normal in the past. <ELECTRONICALLY SIGNED> By: Solitario Post MD, FACC 01/23/19 1155 [id number] Post MD, FACC /nt
== END 2019-01-19 15:35 | disposition home or self-care (01) | DRG 287 ==
LOC: M.ERS 20:47 → M.TBA-ER 23:43 → M.2W 23:43
PROVIDERS: Internal Medicine; Internal Medicine Cardiovascular Disease; Nurse Practitioner Family; Personal Emergency Response Attendant; ADMIT Internal Medicine
PROC: 5A09357 Assistance with Respiratory Ventilation, Less than 24 Consecutive Hours, Continuous Positive Airway Pressure (ICD-10-PCS; 2019-01-17)
PROC: 4A023N7 Measurement of Cardiac Sampling and Pressure, Left Heart, Percutaneous Approach (ICD-10-PCS; principal; 2019-01-18)
PROC: B2111ZZ Fluoroscopy of Multiple Coronary Arteries using Low Osmolar Contrast (ICD-10-PCS; principal; 2019-01-18)
PROC: B2151ZZ Fluoroscopy of Left Heart using Low Osmolar Contrast (ICD-10-PCS; principal; 2019-01-18)
PROC: 4A023N7 Measurement of Cardiac Sampling and Pressure, Left Heart, Percutaneous Approach (ICD-10-PCS; 2019-01-18)
PROC: 5A09357 Assistance with Respiratory Ventilation, Less than 24 Consecutive Hours, Continuous Positive Airway Pressure (ICD-10-PCS; 2019-01-18)
PROC: B215YZZ Fluoroscopy of Left Heart using Other Contrast (ICD-10-PCS; 2019-01-18)
PROC: B211YZZ Fluoroscopy of Multiple Coronary Arteries using Other Contrast (ICD-10-PCS; 2019-01-18)
PROC: 5A09357 Assistance with Respiratory Ventilation, Less than 24 Consecutive Hours, Continuous Positive Airway Pressure (ICD-10-PCS; 2019-01-19)
DX: I25.110 Atherosclerotic heart disease of native coronary artery with unstable angina pectoris (principal); J44.1 Chronic obstructive pulmonary disease with (acute) exacerbation; R06.03 Acute respiratory distress; N18.2 Chronic kidney disease, stage 2 (mild); F32.9 Major depressive disorder, single episode, unspecified; D75.1 Secondary polycythemia; E66.09 Other obesity due to excess calories; E11.22 Type 2 diabetes mellitus with diabetic chronic kidney disease; M54.6 Pain in thoracic spine; Z95.5 Presence of coronary angioplasty implant and graft; Z90.49 Acquired absence of other specified parts of digestive tract; Z87.01 Personal history of pneumonia (recurrent); I25.2 Old myocardial infarction; Z88.8 Allergy status to other drugs, medicaments and biological substances; Z88.6 Allergy status to analgesic agent; Z91.013 Allergy to seafood; Z68.39 Body mass index [BMI] 39.0-39.9, adult; Z87.891 Personal history of nicotine dependence; Z91.048 Other nonmedicinal substance allergy status